=== PATIENT | female | born 1940 | race Caucasian/White ===

== ENCOUNTER 2017-11-16 17:31 | Inpatient (IN) | payer MEDICARE, BC ==
[~2017-11-16] VITALS: Ht 160 cm; Wt 68.9 kg
--- OUTSIDE RECORDS SUMMARY | 2017-11-16 17:33 | XMS REPORT ---
Author Author [facility] Address Unknown Phone Unavailable Care Team Providers Care Feed Blender Name Role Phone CLINT YIP Unavailable Unavailable Problems This patient has no known problems. Allergies, Adverse Reactions, Alerts This patient has no known allergies or adverse reactions. Medications This patient has no known medications. Results Test Description Test Time Test Comments Text Results Atomic Results Result Comments CHEST 2 VIEWS [place] [address] Patient Name: KENYATTA VALENCIA MR #: [id number] : 1940 Age/Sex: 76/F Req #: [id number] Adm Physician: Ordered by: CLINT YIP MD Report #: [id number] Location: RAD Room/Bed: Procedure: [id number] DX/CHEST 2 VIEWS Exam Date: 11/16/17 Exam Time: 1120 REPORT STATUS: Signed PROCEDURE: Frontal and lateral views of the chest. COMPARISON: None. INDICATIONS: SHORTNESS OF BREATH, COPD, WEAKNESS FINDINGS: Lines/tubes: None. Lungs: Increased lucency in the upper lungs, likely reflecting COPD changes. 6.3 x 7.8 cm density/opacity in the right upper lobe, with a slightly well-defined inferior border. Ill-defined 1.5 x 1.0 cm opacity in the left upper lobe, projecting between the posterior aspects of the left fourth and fifth ribs. Rest of the lungs is grossly clear. Pleura: There is no pleural effusion or pneumothorax. Heart and mediastinum: Cardiac silhouette is unremarkable. Pulmonary vasculature is normal. Convexity projecting in the AP window may represent adenopathy Bones: No acute bony abnormalities. Generalized osteopenia. Degenerative disc changes in the thoracic spine. IMPRESSION: 1. Findings in the right upper lobe highly suspicious for bronchogenic neoplasm, given the history of COPD. Recommend contrast- enhanced CT chest for further evaluation. 2. Ill-defined 1.5 cm opacity in the left upper lobe may represent a metastatic lesion. 3. Convexity projecting in the AP window may represent adenopathy. 4. . Findings discussed with Dr. Yip November 16, 2017 1220 hrs. Sarah Nieves M.D. Dictated by: Sarah Nieves M.D. on 11/16/2017 at 12:18 Electronically approved by: Sarah Nieves M.D. on 11/16/2017 at 12:22 Dictated By: SARAH NIEVES MD 1222 Transcribed By: ZAHIDA on 11/16/17 1222 COPY TO: CLINT YIP MD
[2017-11-16 18:11] LABS: BASOPHILS # (AUTO) 0.1 (0.0-0.1); BASOPHILS % 0.3 % (0.0-1.0); EOSINOPHILS # (AUTO) 0.1 (0.0-0.4); EOSINOPHILS % 0.3 % (0.0-6.0); HEMATOCRIT 35.7 % (34.2-44.1); HEMOGLOBIN 11.7 g/dL (12.0-16.0); LYMPHOCYTES # (AUTO) 2.9 (1.0-3.2); LYMPHOCYTES % 18.3 % (18.0-39.1); MEAN CORPUSCULAR HEMOGLOBIN 28.5 pg (28-32); MEAN CORPUSCULAR HGB CONC 32.8 g/dL (31-35); MEAN CORPUSCULAR VOLUME 86.9 fL (81-99); MONOCYTES # (AUTO) 1.5 (0.2-0.8); MONOCYTES % 9.8 % (4.4-11.3); NEUTROPHILS # (AUTO) 11.2 (2.1-6.9); NEUTROPHILS % 70.9 % (38.7-80.0); PLATELET COUNT 468 x10e3/uL (140-360); RED BLOOD COUNT 4.11 x10e6/uL (3.6-5.1); RED CELL DISTRIBUTION WIDTH 13.3 % (11.7-14.4)
[2017-11-16 18:28] LABS: ALANINE AMINOTRANSFERASE 8 IU/L (0-55); ALBUMIN 3.4 g/dL (3.5-5.0); ALBUMIN/GLOBULIN RATIO 0.8 (0.8-2.0); ALKALINE PHOSPHATASE 79 IU/L (40-150); BLOOD UREA NITROGEN 19 mg/dL (7-26); BUN/CREATININE RATIO 29 (6-25); CALCIUM 10.2 mg/dL (8.4-10.2); CARBON DIOXIDE 31 mmol/L (22-29); CHLORIDE 94 mmol/L (98-107); CREATINE KINASE 29 IU/L (29-168); CREATININE, SERUM 0.66 mg/dL (0.57-1.11); EST GLOMERULAR FILTRATION RATE > 60 ML/MIN (60-); GLUCOSE 92 mg/dL (74-118); SODIUM 136 mmol/L (136-145)
--- NOTE | 2017-11-16 18:35 | Diagnostic Imaging Report ---
PROCEDURE: Frontal and lateral views of the chest. COMPARISON: Patients [facility], , CHEST 2 VIEWS, 11/16/2017, 11:28. INDICATIONS: PNEUMONIA FINDINGS: See impression. IMPRESSION: 1. no interval change since prior chest x-ray performed today at 1128 hr.. Please refer to prior chest 2 views for detail. Ayaan Nieves M.D. Dictated by: Ayaan Nieves M.D. on 11/16/2017 at 18:37 Electronically approved by: Ayaan Nieves M.D. on 11/16/2017 at 18:37
[2017-11-16 19:32] LABS: HYPOCHROMASIA SLIGHT; LYMPHOCYTES % (MANUAL) 22 % (19-48); MONOCYTES % (MANUAL) 11 % (3.4-9.0); NEUTROPHILS % (MANUAL) 67 % (40-74); PLATELET ESTIMATE SLIGHTLY INCREASED; PLATELET MORPHOLOGY COMMENT FEW LARGE; RBC MORPHOLOGY COMMENT NORMAL
--- NOTE | 2017-11-16 20:13 | Diagnostic Imaging Report ---
CT chest with enhancement CPT code: 79984 INDICATION: Lung mass TECHNIQUE: 5 mm collimation axial images obtained from the thoracic inlet to the level of the diaphragm following uneventful administration of 100 cc of low osmolar, nonionic intravenous contrast. RADIATION DOSE: Total DLP: 504.3 mGy*cm Estimated effective dose: (DLP x 0.015 x size factor) mSv CTDIvol has been reviewed. It is below the limits set by the Radiation Protocol Committee (RPC). Comparison: Chest x-ray 1128 hours. CHEST FINDINGS: Lymph nodes: No enlarged axillary lymph nodes. A right supraclavicular lymph nodes measure up to 8 mm. There are numerous prominent right paratracheal lymph nodes that measure up to 1.2 x 0.9 cm. No enlarged left axillary lymph nodes. Right hilar lymph node measures 2.3 x 1.6 cm. Subcarinal lymph node measures 1.1 cm in short axis. Prevascular lymph nodes measure less than 10 mm. There are calcifications of the left hilar lymph nodes. No enlarged cardiophrenic lymph nodes Thyroid: Visualized portions are normal. Mediastinum: There is mass effect on the distal internal jugular vein/proximal SVC secondary to tumor. The vein remains patent. There are calcifications throughout the aorta and mild ectasia. No filling defects in the pulmonary artery. No pericardial effusion. Coronary artery calcifications are present. The esophagus is collapsed. Lungs: Right Lung: Spiculated mass in the anterior upper lobe invades the pleura and chest wall. This measures 3.8 x 6.3 x 6.4 cm with lepidic growth along the bronchovascular bundle towards the hilum. There are no satellite nodules. At baseline, there is moderate burden of centrilobular emphysema. Left Lung: Mass in the upper lobe is lobulated with spiculated margins and measures 1.1 x 1.5 cm. There is moderate burden of centrilobular emphysema. Airways: Diffuse bronchial wall thickening consistent with chronic bronchitis. There is dependently layering mucus in the distal trachea and frannie extending into the proximal right and left bronchi. Pleura: No pleural effusions. ABDOMEN: Large cystic mass posterior to the liver is incompletely imaged and measures approximately 9.6 x 11.2 cm. Neither adrenal gland is visible. There is fatty atrophy of the pancreas. Visualized portions of the liver are unremarkable. There are low attenuating lesion the upper pole the left kidney that measure up to 2 cm. These are suggestive of cysts. The spleen is not visualized and may be absent. Bones: There is destruction of the right first and second ribs secondary to tumor. The bones are diffusely demineralized. There are degenerative changes of the thoracic spine. No lytic or blastic lesions elsewhere. IMPRESSION: 1. Large neoplasm in the anterior right upper lobe with pleural and chest wall invasion, lepidic growth towards the hilum and associated rib destruction. This mass causes mass effect on the distal right internal jugular vein/proximal IVC without thrombus. 2. Right hilar and mediastinal lymphadenopathy consistent with metastasis. Spiculated left upper lobe mass consistent with metastasis. 3. Moderate emphysema. Chronic bronchitis. Mucus in the trachea and proximal bronchi as described above. 4. Large cystic mass in the right upper quadrant may be renal in origin. Recommend CT of the abdomen and pelvis in 48 hours to complete staging. Signed by: Dr. Edgar Hodges MD on 11/16/2017 8:09 PM
[2017-11-16] MEDS ORDERED: ONDANSETRON HCL 4 MG ORAL DISINTEGRATING TAB PO PRN (21:00)
[2017-11-16] MEDS: SODIUM CHLORIDE 0.9% 1000ML 1,000 ML IV SCH (21:25)
[2017-11-16] MEDS: AZITHROMYCIN 500MG/NS 250 ML 250 ML IV SCH (21:25)
[2017-11-16] MEDS: CEFTRIAXONE SOD 1 GM VIAL IV SCH (21:25)
[2017-11-16] MEDS ORDERED: TOPROL XL25 MG PO (21:42)
[2017-11-16] MEDS ORDERED: PREVACID30 MG (21:42)
[2017-11-16] MEDS ORDERED: VALIUM5 MG (21:42)
[2017-11-16] MEDS ORDERED: PLAVIX75 MG PO (21:42)
[2017-11-16] MEDS ORDERED: ASPIR 8181 MG (21:42)
[2017-11-16] MEDS ORDERED: [UNRECOGNIZED DRUG - OTHER] (22:35)
[2017-11-16 23:58] VITALS: BP 121/61
[2017-11-17] VITALS (8 sets, daily range): BP systolic 102–139; BP diastolic 52–70
[2017-11-17] MEDS ORDERED: ALBUTEROL/IPRATROPIUM 3 ML NEB NEB ONE (03:00)
[2017-11-17] MEDS ORDERED: ALBUTEROL/IPRATROPIUM 3 ML NEB NEB SCH ×2 (03:00)
[2017-11-17 06:22] LABS: BASOPHILS % 0.3 % (0.0-1.0); EOSINOPHILS % 0.2 % (0.0-6.0); HEMATOCRIT 33.3 % (34.2-44.1); HEMOGLOBIN 10.7 g/dL (12.0-16.0); LYMPHOCYTES % 20.9 % (18.0-39.1); MEAN CORPUSCULAR HEMOGLOBIN 28.5 pg (28-32); MEAN CORPUSCULAR HGB CONC 32.1 g/dL (31-35); MEAN CORPUSCULAR VOLUME 88.8 fL (81-99); MONOCYTES # (AUTO) 1.3 (0.2-0.8); MONOCYTES % 9.1 % (4.4-11.3); NEUTROPHILS # (AUTO) 9.9 (2.1-6.9); NEUTROPHILS % 69.1 % (38.7-80.0); PLATELET COUNT 445 x10e3/uL (140-360); RED BLOOD COUNT 3.75 x10e6/uL (3.6-5.1); RED CELL DISTRIBUTION WIDTH 13.5 % (11.7-14.4)
[2017-11-17 06:49] LABS: ALANINE AMINOTRANSFERASE 7 IU/L (0-55); ALBUMIN 2.9 g/dL (3.5-5.0); ALBUMIN/GLOBULIN RATIO 0.8 (0.8-2.0); ALKALINE PHOSPHATASE 70 IU/L (40-150); ANION GAP 11.2 mmol/L (8-16); BLOOD UREA NITROGEN 12 mg/dL (7-26); BUN/CREATININE RATIO 19 (6-25); CALCIUM 9.9 mg/dL (8.4-10.2); CARBON DIOXIDE 33 mmol/L (22-29); CHLORIDE 99 mmol/L (98-107); CREATINE KINASE 36 IU/L (29-168); CREATININE, SERUM 0.64 mg/dL (0.57-1.11); EST GLOMERULAR FILTRATION RATE > 60 ML/MIN (60-); GLUCOSE 88 mg/dL (74-118); POTASSIUM 4.2 mmol/L (3.5-5.1); SODIUM 139 mmol/L (136-145)
[2017-11-17] MEDS: SODIUM CHLORIDE 0.9% 1000ML 1,000 ML IV SCH ×3 (07:12→22:10)
[2017-11-17] MEDS: ALBUTEROL/IPRATROPIUM 3 ML NEB NEB SCH ×3 (10:46→20:00)
[2017-11-17 14:58] LABS: CREATINE KINASE 42 IU/L (29-168)
[2017-11-17] MEDS ORDERED: NORCO 5-325 TA1 EACH PO (17:28)
--- NOTE | 2017-11-17 18:00 | History and Physical ---
CHIEF COMPLAINT: This is a 76-year-old female who comes in with shortness of breath. HISTORY OF PRESENTING ILLNESS: This is a 76-year-old lady with a history of COPD, history of hypertension, history of hyperlipidemia, history of coronary artery disease and ovarian cancer, was in usual state of health until 2 days prior to admission the patient started to have shortness of breath which was increased and exacerbated, came in and was found to have right-sided findings, sent for a chest x-ray which showed a mass in the right lung field. Patient was admitted for possible bronchitis and also possible metastatic cancer. PAST MEDICAL HISTORY: History of coronary artery disease, history of restless legs syndrome, history of COPD, history of acid reflux, history of ovarian cancer in the past, history of anxiety, and a history of chemotherapy for ovarian cancer. SURGICAL HISTORY: Includes surgical removal of ovaries, coronary arteries PCI stents. MEDICINES SHE IS TAKING: Albuterol, ipratropium bromide, Celexa, Cymbalta, Cipro HC suspension, tamsulosin 0.4 mg, cefdinir 300 mg every 12 hours, doxycycline, Valium and diazepam 5 mg as needed. SOCIAL HISTORY: A history of smoking in the past, currently nonsmoking. He used to smoke about 1 to 2 packs a day. REVIEW OF SYSTEMS: Negative for chest pain. Positive for shortness of breath. No nausea, vomiting, diarrhea. No constipation. No rectal bleeding. No hematochezia. Positive for extreme fatigue and tiredness. No diplopia, no blurry vision. Positive for shortness of breath on exertion. FAMILY HISTORY: History of father with heart disease, and mother of stomach cancer. Has one brother, one sister, healthy. Four sons and two daughters who are healthy, too. PHYSICAL EXAMINATION GENERAL: Patient is alert and oriented x3. HEENT: Normocephalic, atraumatic. Pupils react to light and accommodation. CARDIOVASCULAR: S1 and S2 normal. Regular rhythm. LUNGS: Decreased air entry into the lung garcia. Positive for rhonchi bilaterally. Stony dullness is present in the right upper lobe and the upper quadrant. ABDOMEN: Nontender, nondistended. EXTREMITIES: No clubbing. Positive for edema. LABORATORY VALUES: Initial white count was 15,000 with a hemoglobin of 11.7, hematocrit of 35.7. BUN of 19, creatinine 0.66, sodium of 136, potassium 4. Total bilirubin was 0.4, alkaline phos was 79, ALT was 8. Chest x-ray and CT scan repeat show metastatic carcinoma in both lung garcia, positive for liver lesions, too. ASSESSMENT: Carcinoma for sure with metastatic lesions, also with possible spread to the abdominal wall cavity. The patient was requested to have a biopsy. At this point, the patient with the knowledge of the extensive disease did not want a biopsy. She wants to go home and consider hospice at a later date. I have discussed with her the possibilities and the risks and benefits of having a biopsy and not having it, and patient still decides to not do the biopsy. Will welcome her wishes and possible discharge in one to two days and will follow up with her at a later date for hospice. FINAL DIAGNOSIS 1. Metastatic cancer. 2. Hypertension. 3. Hyperlipidemia. 4. Chronic obstructive pulmonary disease exacerbation. 5. Primary generalized arthritis. 6. Depression. Job#: [id number] EV
[2017-11-17] MEDS: CEFTRIAXONE SOD 1 GM VIAL IV SCH (22:10)
[2017-11-17] MEDS: AZITHROMYCIN 500MG/NS 250 ML 250 ML IV SCH (22:10)
[2017-11-18] VITALS: BP 128/60
[2017-11-18] MEDS: ALBUTEROL/IPRATROPIUM 3 ML NEB NEB SCH ×3 (00:30→06:42)
[2017-11-18 04:00] VITALS: BP 124/72
[2017-11-18 04:30] VITALS: BP 128/60
[2017-11-18] MEDS: SODIUM CHLORIDE 0.9% 1000ML 1,000 ML IV SCH (05:00)
[2017-11-18] MEDS ORDERED: PREDNISONE20 MG PO (07:31)
[2017-11-18 08:00] VITALS: BP 124/67
[2017-11-18] MEDS ORDERED: CLOPIDOGREL BISULFATE 75 MG TAB PO SCH (09:00)
[2017-11-18] MEDS ORDERED: ASPIRIN 81 MG CHEW TAB PO SCH (09:00)
== END 2017-11-18 08:06 | disposition home or self-care (01) | DRG 181 ==
LOC: ER 17:31 → MED/SURG2 21:00
PROVIDERS: ADMIT Family Medicine; ATTEND Family Medicine
DX: C34.91 Malignant neoplasm of unspecified part of right bronchus or lung (principal); J44.1 Chronic obstructive pulmonary disease with (acute) exacerbation; C79.89 Secondary malignant neoplasm of other specified sites; I10 Essential (primary) hypertension; E78.5 Hyperlipidemia, unspecified; I25.10 Atherosclerotic heart disease of native coronary artery without angina pectoris; K21.9 Gastro-esophageal reflux disease without esophagitis; F41.9 Anxiety disorder, unspecified; Z79.899 Other long term (current) drug therapy; Z87.891 Personal history of nicotine dependence; M19.91 Primary osteoarthritis, unspecified site
CPT/HCPCS: 36415; 71046; 71260; 80053; 82550; 82553; 84484; 85025; 87040; 94640; 99284; J0456; J0696; J7030

== ENCOUNTER → 2017-11-16 | Outpatient (CLI) | payer MEDICARE, BC ==
[~2017-11-16] MED LIST: ASPIR 8181 MG; IOPAMIDOL 370 MG/ML 200 ML INFUS..BTL INJ ONE; NORCO 5-325 TA1 EACH PO; PLAVIX75 MG PO; PREVACID30 MG; SODIUM CHLORIDE 0.9% 50ML 50 ML ONE; TOPROL XL25 MG PO; VALIUM5 MG; [UNRECOGNIZED DRUG - OTHER]
--- NOTE | 2017-11-16 12:19 | Diagnostic Imaging Report ---
PROCEDURE: Frontal and lateral views of the chest. COMPARISON: None. INDICATIONS: SHORTNESS OF BREATH, COPD, WEAKNESS FINDINGS: Lines/tubes: None. Lungs: Increased lucency in the upper lungs, likely reflecting COPD changes. 6.3 x 7.8 cm density/opacity in the right upper lobe, with a slightly well-defined inferior border. Ill-defined 1.5 x 1.0 cm opacity in the left upper lobe, projecting between the posterior aspects of the left fourth and fifth ribs. Rest of the lungs is grossly clear. Pleura: There is no pleural effusion or pneumothorax. Heart and mediastinum: Cardiac silhouette is unremarkable. Pulmonary vasculature is normal. Convexity projecting in the AP window may represent adenopathy Bones: No acute bony abnormalities. Generalized osteopenia. Degenerative disc changes in the thoracic spine. IMPRESSION: 1. Findings in the right upper lobe highly suspicious for bronchogenic neoplasm, given the history of COPD. Recommend contrast-enhanced CT chest for further evaluation. 2. Ill-defined 1.5 cm opacity in the left upper lobe may represent a metastatic lesion. 3. Convexity projecting in the AP window may represent adenopathy. 4. . Findings discussed with Dr. Restrepo November 16, 2017 1220 hrs. Ayaan Nieves M.D. Dictated by: Ayaan Nieves M.D. on 11/16/2017 at 12:18 Electronically approved by: Ayaan Nieves M.D. on 11/16/2017 at 12:22
== END ==
LOC: RAD 11:10
PROVIDERS: ATTEND Family Medicine
DX: J44.1 Chronic obstructive pulmonary disease with (acute) exacerbation (principal); R53.83 Other fatigue
CPT/HCPCS: 71046; Q9967